=== PATIENT | male | born 1990 | race Caucasian/White ===

== ENCOUNTER 2019-10-20 14:50 | Emergency (ER) | payer OTHER ==
[2019-10-20] MEDS ORDERED: Ketorolac 60 MG/2 ML SDV IM ONE (16:07)
[2019-10-20] MEDS ORDERED: Oseltamivir 75 MG Cap PO ONE (16:08)
[2019-10-20] MEDS ORDERED: Dexamethasone 10 MG/ML SDV IM ONE (16:09)
--- NOTE | 2019-10-20 16:23 | EDM.PDOC ---
ED HPI GENERAL MEDICAL PROBLEM - General Chief Complaint: Respiratory Problem Stated Complaint: FLU SX Time Seen by Provider: 10/20/19 15:12 Source of Information: Reports: Patient, RN Notes Reviewed History Limitations: Reports: No Limitations - History of Present Illness INITIAL COMMENTS - FREE TEXT/NARRATIVE: Patient is a 29-year-old male who presents to the ED for the evaluation of a fever and flulike symptoms. Patient notes that these developed yesterday, and he states that they worsened this morning. He tried to go to work, but had to leave work due to his symptoms. He states he feels as if he has been hit by a ton of bricks. He is complaining of headache, fevers/chills, all over body aches, but does not have any nausea vomiting or diarrhea. He did take some DayQuil at around noon today for further management of his symptoms. He states that he was able to get some sleep last night and this made him feel a little bit better. He states that he is not been able to eat or drink much due to the pain in his throat, he states he has been trying to drink water however. - Related Data Allergies Allergy/AdvReac Type Severity Reaction Status Date / Time No Known Allergies Allergy Verified 10/20/19 15:24 Home Meds: Home Meds Omeprazole 20 mg PO BEDTIME 10/20/19 [History] Oseltamivir [Tamiflu] 75 mg PO BID #9 cap 10/20/19 [Rx] Past Medical History - Past Health History Medical/Surgical History: Denies Medical/Surgical History - Past Surgical History HEENT Surgical History: Reports: Oral Surgery Social & Family History - Tobacco Use Smoking Status *Q: Current Every Day Smoker Years of Tobacco use: 13 Packs/Tins Daily: 1 - Caffeine Use Caffeine Use: Reports: Energy Drinks - Recreational Drug Use Recreational Drug Use: No ED ROS GENERAL - Review of Systems Review Of Systems: Comprehensive ROS is negative, except as noted in HPI. Constitutional: Reports: Fever, Chills, Malaise, Decreased Appetite HEENT: Reports: Throat Pain Respiratory: Reports: Cough. Denies: Shortness of Breath Cardiovascular: Denies: Chest Pain GI/Abdominal: Denies: Abdominal Pain, Nausea, Vomiting ED EXAM, GENERAL - Physical Exam Exam: See Below Exam Limited By: No Limitations General Appearance: Alert, WD/WN, No Apparent Distress Eye Exam: Bilateral Eye: EOMI, Normal Inspection, PERRL Ears: Normal External Exam, Normal Canal, Hearing Grossly Normal, Normal TMs Nose: Normal Inspection Throat/Mouth: Normal Inspection, Normal Lips, Normal Teeth, Normal Gums, Normal Oropharynx, Normal Voice, No Airway Compromise Head: Atraumatic, Normocephalic Neck: Normal Inspection Respiratory/Chest: No Respiratory Distress, Lungs Clear, Normal Breath Sounds, No Accessory Muscle Use, Chest Non-Tender Cardiovascular: Normal Peripheral Pulses, Regular Rate, Rhythm, No Murmur Extremities: Normal Inspection, Normal Capillary Refill Neurological: Alert, Oriented, Normal Cognition, No Motor/Sensory Deficits Psychiatric: Normal Affect, Normal Mood Skin Exam: Warm, Dry, Intact, Normal Color, No Rash Course - Vital Signs Last Recorded V/S: Last Vital Signs Temp 103.0 F H 10/20/19 15:28 Pulse 117 H 10/20/19 15:28 Resp 36 H 10/20/19 15:28 BP 157/85 H 10/20/19 15:28 Pulse Ox 99 10/20/19 15:28 - Orders/Labs/Meds Meds: Medications Discontinued Medications Generic Name Dose Route Start Last Admin Trade Name Freq PRN Reason Stop Dose Admin Dexamethasone 10 mg 10/20/19 16:09 10/20/19 16:27 Dexamethasone IM 10/20/19 16:10 10 mg ONETIME ONE Administration Ketorolac Tromethamine 60 mg 10/20/19 16:07 10/20/19 16:28 Toradol IM 10/20/19 16:08 Not Given ONETIME ONE Oseltamivir Phosphate 75 mg 10/20/19 16:08 10/20/19 16:27 Tamiflu PO 10/20/19 16:09 75 mg ONETIME ONE Administration - Re-Assessments/Exams Free Text/Narrative Re-Assessment/Exam: 10/20/19 16:20 Patient presents to the ED for flulike symptoms. He was swabbed for influenza at the time of triage, and he is influenza A positive at today's visit. I have ordered 60 mg IM Toradol, 10 mg IM dexamethasone for his throat pain and inflammation, and oral Tamiflu as his symptoms started yesterday. Patient will be discharged home with general recommendations. Departure - Departure Time of Disposition: 16:21 Disposition: Home, Self-Care 01 Condition: Fair Clinical Impression: Influenza A - Discharge Information *PRESCRIPTION DRUG MONITORING PROGRAM REVIEWED*: No *COPY OF PRESCRIPTION DRUG MONITORING REPORT IN PATIENT LU: No Prescriptions: Oseltamivir [Tamiflu] 75 mg PO BID #9 cap Instructions: Influenza, Adult, [id number] Referrals: Yuniel Marvin MD [Primary Care Provider] - Forms: ED Department Discharge Additional Instructions: You have been evaluated in the ED for cold like symptoms and fever. You did test positive for influenza A. Please try to limit your exposure to others you are 24 hours fever free. You may use 500 mg Tylenol or 600 mg ibuprofen every 6 hours as needed for general aches/fever. Do not exceed 4000 mg Tylenol or 3200 mg ibuprofen in a 24 -hour time span. Please encourage fluid intake as well as a bland diet until you can tolerate normal foods. Please return to the ED if your symptoms should change or worsen. Sepsis Event Note - Evaluation Sepsis Screening Result: No Definite Risk - Focused Exam Vital Signs: Vital Signs Temp Pulse Resp BP Pulse Ox 10/20/19 15:28 103.0 F H 117 H 36 H 157/85 H 99 Date Exam was Performed: 10/20/19 Time Exam was Performed: 23:15
== END 2019-10-20 16:50 | disposition home or self-care (01) ==
LOC: JD.ED 14:50
DX: J10.1 Influenza due to other identified influenza virus with other respiratory manifestations (principal); F17.210 Nicotine dependence, cigarettes, uncomplicated
CPT/HCPCS: 87804; 96372; 99284; A9270; J1100; 99283

== ENCOUNTER 2020-10-10 18:13 | Emergency (ER) | payer OTHER ==
--- NOTE | 2020-10-10 19:15 | EDM.PDOC ---
ED HPI GENERAL MEDICAL PROBLEM - General Chief Complaint: Upper Extremity Injury/Pain Stated Complaint: PAIN IN BOTH WRISTS Time Seen by Provider: 10/10/20 18:57 Source of Information: Reports: Patient, RN Notes Reviewed History Limitations: Reports: No Limitations - History of Present Illness INITIAL COMMENTS - FREE TEXT/NARRATIVE: Patient is a 30-year-old male who presents to the ED for evaluation of his bilateral wrist pain. Patient notes that this has been present for the last 6 or 8 months. However over the last 1 to 2 weeks, it seems to have worsened. He is complaining of some numbness and tingling into his fingers, with throbbing type pain in his wrists. He states that he has issues gripping things due to the pain, and notes that this seems to be worse in the right wrist. Patient is right-handed. 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 He has been using 600 mg ibuprofen about 2 times a day once in the morning, then once about custodial through the day. Patient states that his primary care provider is Dr. Marvin. The patient has no fevers or chills, cough/shortness of breath, nausea/vomiting/diarrhea. Bilateral Wrist Pain Score (Numeric/FACES): 5 - Related Data Allergies Allergy/AdvReac Type Severity Reaction Status Date / Time No Known Allergies Allergy Verified 10/10/20 18:20 Home Meds: Home Meds Omeprazole 20 mg PO BEDTIME 10/20/19 [History] Acetaminophen/HYDROcodone [[place] 325-5 MG] 1 tab PO Q6H PRN #15 tablet 10/10/20 [Rx] predniSONE 20 mg PO ASDIRECTED #15 tab 10/10/20 [Rx] Past Medical History - Past Health History Medical/Surgical History: Denies Medical/Surgical History Gastrointestinal History: Reports: GERD, Irritable Bowel Syndrome Psychiatric History: Reports: Depression - Infectious Disease History Infectious Disease History: Reports: Chicken Pox - Past Surgical History HEENT Surgical History: Reports: Oral Surgery Other HEENT Surgeries/Procedures: all teeth extracted. Social & Family History - Tobacco Use Tobacco Use Status *Q: Current Every Day Tobacco User Years of Tobacco use: 14 Packs/Tins Daily: 0.5 - Caffeine Use Caffeine Use: Reports: Coffee, Energy Drinks, Soda - Recreational Drug Use Recreational Drug Use: No Review of Systems - Review of Systems Review Of Systems: Comprehensive ROS is negative, except as noted in HPI. ED EXAM, GENERAL - Physical Exam Exam: See Below Exam Limited By: No Limitations General Appearance: Alert, WD/WN, No Apparent Distress Respiratory/Chest: No Respiratory Distress, Lungs Clear, Normal Breath Sounds, No Accessory Muscle Use, Chest Non-Tender Cardiovascular: Normal Peripheral Pulses, Regular Rate, Rhythm, No Edema Peripheral Pulses: 2+: Radial (L), Radial (R) Extremities: Normal Inspection, Normal Capillary Refill, Other (Tinel's sign is positive bilaterally) Neurological: Alert, Oriented, Normal Cognition, No Motor/Sensory Deficits Psychiatric: Normal Affect, Normal Mood Skin Exam: Warm, Dry, Intact, Normal Color, No Rash Course - Vital Signs Last Recorded V/S: Last Vital Signs Temp 100.1 F 10/10/20 18:15 Pulse 106 H 10/10/20 18:15 Resp 18 10/10/20 18:15 BP 201/103 H 10/10/20 18:15 Pulse Ox 99 10/10/20 18:15 - Orders/Labs/Meds Orders: Active Orders 24 hr Category Date Time Status DME for Discharge [COMM] Routine Oth 10/10/20 19:08 Ordered - Re-Assessments/Exams Free Text/Narrative Re-Assessment/Exam: 10/10/20 19:11 Patient presents to the ED for the evaluation of his bilateral wrist pain. Clinical course is highly suspicious for carpal tunnel versus arthritis in nature. Due to the suspicion of carpal tunnel, patient will be given to wrist splints 1 for his right and one for his left wrist, so he can wear at night to hopefully provide him pain relief. This will be prefab wrist splints pulled fr om the DME closet. We will get him home with a course of steroids, and some pain medication to take at nighttime. Patient is amenable to this plan he notes that he will talk with Dr. Marvin sometime next week for further management. Departure - Departure Time of Disposition: 19:12 Disposition: Home, Self-Care 01 Condition: Good Clinical Impression: Carpal tunnel syndrome on both sides - Discharge Information *PRESCRIPTION DRUG MONITORING PROGRAM REVIEWED*: Yes *COPY OF PRESCRIPTION DRUG MONITORING REPORT IN PATIENT LU: No Prescriptions: Acetaminophen/HYDROcodone [[place] 325-5 MG] 1 tab PO Q6H PRN #15 tablet PRN Reason: Pain predniSONE 20 mg PO ASDIRECTED #15 tab Instructions: Carpal Tunnel Syndrome, [id number] Referrals: Yuniel Marvin MD [Primary Care Provider] - Additional Instructions: You were evaluated in the ER today for your bilateral wrist pain. This is thought likely due to carpal tunnel syndrome. Management for this is wrist splints at night on both wrists, a course of anti-inflammatories, and some pain medication. All of which have been provided to at this ER visit. You will need to follow-up with your regular care provider, sometime this week for ongoing management and to make sure your symptoms are getting better. They would be able to provide you with more thorough testing if it is deemed warranted. Please return to the ER at any time if symptoms change or worsen. Sepsis Event Note (ED) - Evaluation Sepsis Screening Result: No Definite Risk - Focused Exam Vital Signs: Vital Signs Temp Pulse Resp BP Pulse Ox 10/10/20 18:15 100.1 F 106 H 18 201/103 H 99 - My Orders Last 24 Hours: My Active Orders 10/10/20 19:08 DME for Discharge [COMM] Routine - Assessment/Plan Last 24 Hours: My Active Orders 10/10/20 19:08 DME for Discharge [COMM] Routine
== END 2020-10-10 19:30 | disposition home or self-care (01) ==
LOC: JD.ED 18:13
DX: G56.02 Carpal tunnel syndrome, left upper limb (principal); K21.9 Gastro-esophageal reflux disease without esophagitis; Z72.0 Tobacco use; Z79.899 Other long term (current) drug therapy
CPT/HCPCS: 99283

== ENCOUNTER 2020-12-25 18:06 | Emergency (ER) | payer OTHER ==
[2020-12-25] MEDS ORDERED: HYDROmorphone 1 MG/ML Syringe IM ONE (18:28)
--- NOTE | 2020-12-25 18:44 | EDM.PDOC ---
ED HPI GENERAL MEDICAL PROBLEM - General Chief Complaint: Upper Extremity Injury/Pain Stated Complaint: pain post op on hand Time Seen by Provider: 12/25/20 18:09 Source of Information: Reports: Patient, RN Notes Reviewed History Limitations: Reports: No Limitations - History of Present Illness INITIAL COMMENTS - FREE TEXT/NARRATIVE: Patient is a 30-year-old male presenting to the emergency department with complaints of postop pain to his right hand. He had carpal tunnel release surgery with Dr. Bonds early this morning in [place]. He states that ever since his nerve block wore off, he has been having intense pain. He was discharged home with 5 [place] 5/325. He states he took 3 of them when the block wore off and then another 2 of them at noon today, therefore he is out. He verbalized that he has a high tolerance to pain medications. Prior to his surgery, Dr. Harry was prescribing him Percocet 10/325 for the pain he was having in his hand which led up to the carpal tunnel release surgery. He states the pain is so severe that it is making him nauseous and anxious which is causing him to be lightheaded as well. right hand Pain Score (Numeric/FACES): 9 - Related Data Allergies Allergy/AdvReac Type Severity Reaction Status Date / Time No Known Allergies Allergy Verified 12/25/20 18:17 Home Meds: Home Meds Omeprazole 20 mg PO BEDTIME 10/20/19 [History] Acetaminophen/HYDROcodone [[place] 325-5 MG] 1 tab PO Q6H PRN #15 tablet 10/10/20 [Rx] Acetaminophen/oxyCODONE [Percocet 325-5 MG] 1 each PO Q4H PRN #10 tab 12/25/20 [Rx] Past Medical History - Past Health History Medical/Surgical History: Denies Medical/Surgical History Gastrointestinal History: Reports: GERD, Irritable Bowel Syndrome Psychiatric History: Reports: Depression - Infectious Disease History Infectious Disease History: Reports: Chicken Pox - Past Surgical History HEENT Surgical History: Reports: Oral Surgery Other HEENT Surgeries/Procedures: all teeth extracted. Social & Family History - Tobacco Use Tobacco Use Status *Q: Current Every Day Tobacco User Years of Tobacco use: 15 Packs/Tins Daily: 1 - Caffeine Use Caffeine Use: Reports: Coffee, Energy Drinks, Soda - Recreational Drug Use Recreational Drug Use: No Review of Systems - Review of Systems Review Of Systems: Comprehensive ROS is negative, except as noted in HPI. ED EXAM, GENERAL - Physical Exam Exam: See Below Exam Limited By: No Limitations General Appearance: Alert, WD/WN, No Apparent Distress Respiratory/Chest: No Respiratory Distress, Lungs Clear, Normal Breath Sounds, No Accessory Muscle Use, Chest Non-Tender Cardiovascular: Normal Peripheral Pulses, Regular Rate, Rhythm, No Edema, No Gallop, No JVD, No Murmur, No Rub Extremities: Other (surgical dressing intact to right hand. No redness, swelling, or edema extending beyong the dressing. CMS is intact distal to the surgical sight.) Neurological: Alert, Oriented, CN II-XII Intact, Normal Cognition, Normal Gait, Normal Reflexes, No Motor/Sensory Deficits Psychiatric: Normal Affect, Normal Mood Skin Exam: Warm, Dry, Intact, Normal Color, No Rash Course - Vital Signs Last Recorded V/S: Last Vital Signs Temp 98.2 F 12/25/20 18:13 Pulse 105 H 12/25/20 18:13 Resp 18 12/25/20 18:13 BP 169/94 H 12/25/20 18:13 Pulse Ox 99 12/25/20 18:13 - Orders/Labs/Meds Orders: Active Orders 24 hr Category Date Time Status COVID-19/FLU A+B [[facility]] Stat Lab 12/25/20 19:15 Stop Req Meds: Medications Discontinued Medications Generic Name Dose Route Start Last Admin Trade Name Taylor PRN Reason Stop Dose Admin Hydromorphone HCl 1 mg 12/25/20 18:28 12/25/20 18:33 Hydromorphone 1 Mg/Ml Syringe IM 12/25/20 18:29 1 mg ONETIME ONE Administration Ketorolac Tromethamine 60 mg 12/25/20 19:01 12/25/20 19:07 Ketorolac 60 Mg/2 Ml Sdv IM 12/25/20 19:02 60 mg ONETIME ONE Administration - Re-Assessments/Exams Free Text/Narrative Re-Assessment/Exam: Patient is a 30-year-old male presenting to the emergency department with complaints of postop pain to his right hand after having carpal tunnel release surgery this morning. He was discharged home with 5 [place]. He states he took 3 of them as soon as the block wore off and then took another 2 around noon. He has had nothing but ibuprofen for pain since noon. He is quite anxious and appears to be in significant discomfort. CMS is intact distal to the surgical site. There is no redness or swelling noted, however given that it has only been about 12 hours since surgery I would not expect to see this anyway. I have ordered Dilaudid 1 mg IM. 12/25/20 19:14 Patient had some relief with the Dilaudid 1 mg IM. Also given Toradol 60 mg IM. I will give him a short course of Percocet. I will give him 10 tabs. Discussed that if he is still having significant pain after 24 to 40 hours, he should be reevaluated. Recommend ice and elevation. Discharge instructions as documented. Departure - Departure Time of Disposition: 19:15 Disposition: Home, Self-Care 01 Condition: Good Clinical Impression: Postoperative pain - Discharge Information *PRESCRIPTION DRUG MONITORING PROGRAM REVIEWED*: Yes *COPY OF PRESCRIPTION DRUG MONITORING REPORT IN PATIENT LU: No Prescriptions: Acetaminophen/oxyCODONE [Percocet 325-5 MG] 1 each PO Q4H PRN #10 tab PRN Reason: Pain Instructions: Acute Pain, Adult Referrals: Conrad Harry MD [Primary Care Provider] - Forms: ED Department Discharge Additional Instructions: You were seen in the emergency department today for evaluation with regards to severe postop pain after your carpal tunnel surgery this morning. While in the ER, you received an injection of Dilaudid as well as Toradol. You have been provided a prescription of Percocet for pain. Recommend routine Tylenol and ibuprofen administration. For pain not relieved by this, you may take 1 Percocet every 4 hours as needed. Do not take your next dose of ibuprofen until about 1:00 this morning as the Toradol you received is also an NSAID. Ice and elevate the extremity at all times for the next 24 to 48 hours. If you are still experiencing significant discomfort after 24 to 48 hours, you should be reevaluated. Sepsis Event Note (ED) - Evaluation Sepsis Screening Result: No Definite Risk - Focused Exam Vital Signs: Vital Signs Temp Pulse Resp BP Pulse Ox 12/25/20 18:13 98.2 F 105 H 18 169/94 H 99
[2020-12-25] MEDS ORDERED: Ketorolac 60 MG/2 ML SDV IM ONE (19:01)
== END 2020-12-25 19:27 | disposition home or self-care (01) ==
LOC: JD.ED 18:06
DX: G89.18 Other acute postprocedural pain (principal); K21.9 Gastro-esophageal reflux disease without esophagitis; Z79.899 Other long term (current) drug therapy; Z72.0 Tobacco use
CPT/HCPCS: 96372; 99283; J1170; J1885

== ENCOUNTER 2022-01-03 07:56 | Emergency (ER) | payer SELFPAY ==
[2022-01-03] MEDS ORDERED: Albuterol 0.083% 2.5 MG/3 ML Neb Soln NEB ONE (08:53)
[2022-01-03 09:46] LABS: CORONAVIRUS COVID-19 NAA NEGATIVE (NEGATIVE)
== END 2022-01-03 11:05 | disposition home or self-care (01) ==
LOC: JD.ED 07:56
DX: J40 Bronchitis, not specified as acute or chronic (principal); K21.9 Gastro-esophageal reflux disease without esophagitis; Z79.899 Other long term (current) drug therapy; Z72.0 Tobacco use; Z20.822 Contact with and (suspected) exposure to COVID-19
CPT/HCPCS: 0241U; 36415; 71045; 80053; 85025; 85379; 86140; 87651; 94640; 99284

== ENCOUNTER 2022-01-04 13:48 | Emergency (ER) | payer SELFPAY ==
[2022-01-04] MEDS ORDERED: methylPREDNISolone Sodium Succinate 125 MG/2 ML SDV IM ONE (15:49)
[2022-01-04] MEDS ORDERED: HYDROmorphone 1 MG/ML Syringe IM ONE (15:49)
[2022-01-04] MEDS ORDERED: Ketorolac 60 MG/2 ML SDV IM ONE (15:50)
[2022-01-04] MEDS ORDERED: cefTRIAXone 1 GM, Lidocaine 1% 2.1 ML IM ONE ×2 (15:51)
== END 2022-01-04 17:51 | disposition home or self-care (01) ==
LOC: JD.ED 13:48 → SUPCPDRO 13:48 → JD.ED 17:51
DX: H60.501 Unspecified acute noninfective otitis externa, right ear (principal); H66.001 Acute suppurative otitis media without spontaneous rupture of ear drum, right ear; K21.9 Gastro-esophageal reflux disease without esophagitis; Z79.899 Other long term (current) drug therapy
CPT/HCPCS: 96372; 99282; J0696; J1170; J1885; J2930

== ENCOUNTER 2022-04-02 00:55 | Emergency (ER) | payer BC ==
[2022-04-02] MEDS ORDERED: Ibuprofen 800 MG Tab PO ONE (01:33)
[2022-04-02 02:40] LABS: CORONAVIRUS COVID-19 NAA POSITIVE (NEGATIVE)
== END 2022-04-02 02:56 | disposition home or self-care (01) ==
LOC: JD.ED 00:55
DX: U07.1 COVID-19 (principal); K21.9 Gastro-esophageal reflux disease without esophagitis; Z79.899 Other long term (current) drug therapy; Z86.16 Personal history of COVID-19
CPT/HCPCS: 0241U; 99283; A9270; 99282

== ENCOUNTER 2022-05-01 12:53 | Emergency (ER) | payer BC | END 2022-05-01 15:00 | disposition home or self-care (01) | LOC: JD.ED 12:53 | DX: J02.9 Acute pharyngitis, unspecified (principal); K21.9 Gastro-esophageal reflux disease without esophagitis; F17.210 Nicotine dependence, cigarettes, uncomplicated; Z79.899 Other long term (current) drug therapy; Z86.16 Personal history of COVID-19 | CPT/HCPCS: 99282; 99283 ==

== ENCOUNTER 2022-08-10 21:08 | Emergency (ER) | payer BC ==
[2022-08-10 22:37] LABS: ESTIMATED GFR 92 mL/min (>60)
== END 2022-08-10 23:50 | disposition home or self-care (01) ==
LOC: JD.ED 21:08
DX: R00.2 Palpitations (principal); K21.9 Gastro-esophageal reflux disease without esophagitis; F17.210 Nicotine dependence, cigarettes, uncomplicated; Z79.899 Other long term (current) drug therapy; Z86.16 Personal history of COVID-19
CPT/HCPCS: 36415; 71046; 71046-26; 80053; 83735; 84443; 85025; 85379; 93005; 99285

== ENCOUNTER 2023-04-03 23:11 | Emergency (ER) | payer BC ==
[2023-04-03] MEDS ORDERED: LORazepam 2 MG/ML SDV IVPUSH ONE (23:23)
[2023-04-03 23:51] LABS: BASOPHILS ABSOLUTE AUTO 0.02 K/mm3 (0.01-0.08); BASOPHILS PERCENT AUTO 0.2 % (0.1-1.2); EOSINOPHILS ABSOLUTE AUTO 0.16 K/mm3 (0.04-0.54); EOSINOPHILS PERCENT AUTO 1.5 (0.8-7.0); HEMATOCRIT 41.2 % (40.1-51.0); HEMOGLOBIN 14.4 gm/dl (13.7-17.5); IMMATURE GRAN ABSOLUTE AUTO 0.02 K/mm3 (0.00-0.10); IMMATURE GRAN PERCENT AUTO 0.2 % (<=1.0); LYMPHOCYTES ABSOLUTE AUTO 2.66 K/mm3 (1.32-3.57); LYMPHOCYTES PERCENT AUTO 24.8 % (21.8-53.1); MEAN CORPUSCULAR HEMOGLOBIN 29.9 pg (25.7-32.2); MEAN CORPUSCULAR VOLUME 85.7 fl (79.0-92.2); MEAN PLATELET VOLUME 9.5 fl (9.4-12.3); MONOCYTES ABSOLUTE AUTO 0.81 K/mm3 (0.30-0.82); MONOCYTES PERCENT AUTO 7.6 % (5.3-12.2); NEUTROPHILS ABSOLUTE AUTO 7.04 K/mm3 (1.78-5.38); NEUTROPHILS PERCENT AUTO 65.7 % (34.0-67.9); PLATELET COUNT,PLT 291 K/mm3 (163-337); RED BLOOD CELL COUNT 4.81 M/mm3 (4.63-6.08); WHITE BLOOD CELL COUNT,WBC 10.71 K/mm3 (4.23-9.07)
[2023-04-04 00:09] LABS: PROTHROMBIN TIME 9.9 SECONDS (9.7-12.0)
[2023-04-04 00:13] LABS: INR < 0.93
[2023-04-04 00:16] LABS: A/G RATIO 1.1 (1-2); ALANINE AMINOTRANSFERASE,ALT 49 U/L (16-63); ALKALINE PHOSPHATASE 119 U/L (46-116); ANION GAP 12.9 (5-15); ASPARTATE AMNIOTRANSFERASE,AST 19 U/L (15-37); BILIRUBIN TOTAL 1.2 mg/dL (0.2-1.0); BLOOD UREA NITROGEN,BUN 7 mg/dL (7-18); BUN/CREATININE RATIO 6.4 (14-18); CALCIUM 9.4 mg/dL (8.5-10.1); CARBON DIOXIDE,CO2 27 mEq/L (21-32); CHLORIDE,CL 101 mEq/L (98-107); CREATININE 1.1 mg/dL (0.7-1.3); ESTIMATED GFR 92 mL/min (>60); GLUCOSE RANDOM 125 mg/dL (70-99); POTASSIUM,K 2.9 mEq/L (3.5-5.1); PROTEIN TOTAL,TP 7.6 g/dl (6.4-8.2); SODIUM,NA 138 mEq/L (136-145); TROPONIN I HIGH SENSITIVITY 4 pg/mL (<=76)
== END 2023-04-04 01:09 | disposition home or self-care (01) ==
LOC: JD.ED 23:11
DX: F41.0 Panic disorder [episodic paroxysmal anxiety] (principal); F19.10 Other psychoactive substance abuse, uncomplicated; K21.9 Gastro-esophageal reflux disease without esophagitis; Z79.899 Other long term (current) drug therapy; Z86.16 Personal history of COVID-19
CPT/HCPCS: 36415; 80053; 84484; 85025; 85610; 93005; 96374; 99285; J2060; 93010; 99284

== ENCOUNTER 2023-12-23 19:10 | Emergency (ER) | payer BC | END 2023-12-23 20:54 | disposition home or self-care (01) | LOC: JD.ED 19:10 | DX: F41.0 Panic disorder [episodic paroxysmal anxiety] (principal); K21.9 Gastro-esophageal reflux disease without esophagitis; Z79.899 Other long term (current) drug therapy; Z86.16 Personal history of COVID-19 | CPT/HCPCS: 99284 ==

== ENCOUNTER 2024-01-26 21:41 | Emergency (ER) | payer BC ==
[2024-01-26] MEDS ORDERED: Acetaminophen 325 MG Tab PO SCH (22:00)
[2024-01-26] MEDS: Acetaminophen 325 MG Tab PO ONE (22:11)
== END 2024-01-26 22:52 | disposition home or self-care (01) ==
LOC: JD.ED 21:41
DX: G89.18 Other acute postprocedural pain (principal); M79.641 Pain in right hand; K21.9 Gastro-esophageal reflux disease without esophagitis; Z86.16 Personal history of COVID-19; Z79.82 Long term (current) use of aspirin; Z79.899 Other long term (current) drug therapy
CPT/HCPCS: 99283

== ENCOUNTER 2024-01-27 21:16 | Inpatient (IN) | payer BC ==
[2024-01-28 00:54] LABS: BASOPHILS ABSOLUTE AUTO 0.1 K/mm3 (0.0-0.2); BASOPHILS PERCENT AUTO 0.5 % (0.0-1.0); EOSINOPHILS ABSOLUTE AUTO 0.2 K/mm3 (0.0-0.4); EOSINOPHILS PERCENT AUTO 1.5 % (0.0-6.0); HEMATOCRIT 41.3 % (42.0-52.0); HEMOGLOBIN 14.5 gm/dl (14.0-18.0); IMMATURE GRAN ABSOLUTE AUTO 0.03 K/mm3 (0.00-0.05); IMMATURE GRAN PERCENT AUTO 0.3 % (0.0-0.4); LYMPHOCYTES ABSOLUTE AUTO 2.9 K/mm3 (1.0-4.8); LYMPHOCYTES PERCENT AUTO 30.1 % (24.0-44.0); MEAN CORPUSCULAR HEMOGLOBIN 29.2 pg (28.0-32.0); MEAN CORPUSCULAR HGB CONC 35.1 g/dl (32.0-36.0); MEAN CORPUSCULAR VOLUME 83.1 fl (83.0-99.0); MEAN PLATELET VOLUME 9.3 fl (9.4-12.4); MONOCYTES ABSOLUTE AUTO 0.8 K/mm3 (0.0-0.8); MONOCYTES PERCENT AUTO 8.2 % (0.0-8.0); NEUTROPHILS ABSOLUTE AUTO 5.8 K/mm3 (1.8-7.7); NEUTROPHILS PERCENT AUTO 59.4 % (41.0-71.0); PLATELET COUNT,PLT 283 K/mm3 (150-400); RED BLOOD CELL COUNT 4.97 M/mm3 (4.52-5.90)
[2024-01-28] MEDS: Ketorolac 15 MG/ML SDV IVPUSH ONE (00:56)
[2024-01-28] MEDS: Sodium Chloride 0.9% 1,000 ML IV ONE (00:56)
[2024-01-28] MEDS: Morphine 4 MG/ML Syringe IVPUSH ONE (00:57)
[2024-01-28 01:16] LABS: A/G RATIO 1.2 (1-2); ALBUMIN 4.1 g/dl (3.4-5.0); ANION GAP 16.7 (5-15); BILIRUBIN TOTAL 1.5 mg/dL (0.2-1.0); BUN/CREATININE RATIO 7.3 (14-18); C-REACTIVE PROTEIN 0.47 mg/dL (<0.30); CALCIUM 9.3 mg/dL (8.5-10.1); CREATININE 1.1 mg/dL (0.7-1.3); EST CRCL DRUG DOSING (CG) 102.68 mL/min; POTASSIUM,K 3.7 mEq/L (3.5-5.1); PROTEIN TOTAL,TP 7.6 g/dl (6.4-8.2)
[2024-01-28 01:36] LABS: INR 0.95; PROTHROMBIN TIME 10.2 SECONDS (9.7-12.0)
[2024-01-28 01:38] LABS: PTT,PARTIAL THROMBOPLSTIN TIME 28.8 SECONDS (21.7-31.4)
[2024-01-28] MEDS: Aspirin 81 MG Tab.Chew PO ONE (01:42)
[2024-01-28] MEDS: Heparin Sodium 5,000 Units/ML Vial IVPUSH ONE (01:42)
[2024-01-28] MEDS: Heparin Sodium/D5W 25,000 UNITS/500 ML BAG IV SCH (01:43)
[2024-01-28] MEDS: Ondansetron 4 MG/2 ML SDV IVPUSH ONE (01:48)
[2024-01-28] MEDS: HYDROmorphone 1 MG/ML Syringe IVPUSH ONE ×2 (02:59→05:26)
[2024-01-28] MEDS: HYDROmorphone 0.5 MG/0.5 ML Syringe IVPUSH ONE (07:49)
[2024-01-28] MEDS: Morphine 2 MG/ML SYRINGE IVPUSH ONE ×2 (09:27→13:00)
[2024-01-28] MEDS: LORazepam 1 MG Tab PO PRN (12:28)
[2024-01-28] MEDS: HYDROmorphone 0.5 MG/0.5 ML Syringe IVPUSH PRN (12:30)
[2024-01-28] MEDS: LORazepam 1 MG Tab PO ONE (15:30)
[2024-01-28] MEDS: oxyCODONE 5 MG Tab PO PRN (15:52)
[2024-01-28] MEDS: hydrALAZINE 20 MG/ML SDV IVPUSH ONE (15:52)
[2024-01-28] MEDS: LORazepam 1 MG Tab PO SCH (16:00)
[2024-01-28] MEDS: Pantoprazole 40 MG Tab.CR PO SCH (20:41)
[2024-01-28] MEDS ORDERED: LORazepam 1 MG Tab PO SCH (21:00)
[2024-01-28] MEDS: Acetaminophen 325 MG Tab PO PRN (21:06)
[2024-01-28] MEDS: cloNIDine 0.1 MG Tab PO PRN (23:05)
[2024-01-29 06:02] LABS: BASOPHILS PERCENT AUTO 0.5 % (0.0-1.0); EOSINOPHILS ABSOLUTE AUTO 0.2 K/mm3 (0.0-0.4); EOSINOPHILS PERCENT AUTO 2.2 % (0.0-6.0); HEMATOCRIT 37.1 % (42.0-52.0); IMMATURE GRAN ABSOLUTE AUTO 0.03 K/mm3 (0.00-0.05); IMMATURE GRAN PERCENT AUTO 0.4 % (0.0-0.4); LYMPHOCYTES ABSOLUTE AUTO 3.1 K/mm3 (1.0-4.8); LYMPHOCYTES PERCENT AUTO 36.4 % (24.0-44.0); MEAN CORPUSCULAR HEMOGLOBIN 29.1 pg (28.0-32.0); MEAN CORPUSCULAR HGB CONC 34.5 g/dl (32.0-36.0); MEAN CORPUSCULAR VOLUME 84.3 fl (83.0-99.0); MEAN PLATELET VOLUME 9.1 fl (9.4-12.4); MONOCYTES ABSOLUTE AUTO 0.7 K/mm3 (0.0-0.8); MONOCYTES PERCENT AUTO 7.9 % (0.0-8.0); NEUTROPHILS ABSOLUTE AUTO 4.5 K/mm3 (1.8-7.7); NEUTROPHILS PERCENT AUTO 52.6 % (41.0-71.0); PLATELET COUNT,PLT 222 K/mm3 (150-400); WHITE BLOOD CELL COUNT,WBC 8.49 K/mm3 (3.9-11.3)
[2024-01-29 06:28] LABS: HEMOGLOBIN 12.8 gm/dl (14.0-18.0)
[2024-01-29 06:32] LABS: A/G RATIO 1.3 (1-2); ALBUMIN 3.7 g/dl (3.4-5.0); ANION GAP 10.8 (5-15); BILIRUBIN TOTAL 1.6 mg/dL (0.2-1.0); BUN/CREATININE RATIO 6.7 (14-18); CREATININE 1.2 mg/dL (0.7-1.3); EST CRCL DRUG DOSING (CG) 94.13 mL/min; POTASSIUM,K 3.8 mEq/L (3.5-5.1); PROTEIN TOTAL,TP 6.6 g/dl (6.4-8.2)
[2024-01-29] MEDS: Aspirin 81 MG Tab.EC PO SCH (08:06)
[2024-01-29] MEDS: amLODIPine 2.5 MG Tab PO SCH (08:06)
[2024-01-29] MEDS ORDERED: Losartan 50 MG Tab PO SCH (09:00)
[2024-01-29] MEDS: Polyethylene Glycol 3350 Powder 17 GM Packet PO SCH (10:32)
[2024-01-29] MEDS: amLODIPine 5 MG Tab PO ONE (12:38)
[2024-01-29] MEDS: Rosuvastatin 10 MG Tab PO SCH (14:53)
[2024-01-29] MEDS: Docusate Sodium 100 MG Cap PO SCH (20:40)
[2024-01-30 07:00] LABS: HEMOGLOBIN 12.2 gm/dl (14.0-18.0); MEAN CORPUSCULAR HEMOGLOBIN 28.7 pg (28.0-32.0); MEAN CORPUSCULAR HGB CONC 34.9 g/dl (32.0-36.0); MEAN CORPUSCULAR VOLUME 82.4 fl (83.0-99.0); MEAN PLATELET VOLUME 9.6 fl (9.4-12.4); PLATELET COUNT,PLT 223 K/mm3 (150-400); RED BLOOD CELL COUNT 4.25 M/mm3 (4.52-5.90); WHITE BLOOD CELL COUNT,WBC 7.85 K/mm3 (3.9-11.3)
[2024-01-30 07:23] LABS: A/G RATIO 1.2 (1-2); ALBUMIN 3.6 g/dl (3.4-5.0); BILIRUBIN TOTAL 1.8 mg/dL (0.2-1.0); BUN/CREATININE RATIO 7.3 (14-18); CALCIUM 8.9 mg/dL (8.5-10.1); CREATININE 1.1 mg/dL (0.7-1.3); EST CRCL DRUG DOSING (CG) 102.68 mL/min; PROTEIN TOTAL,TP 6.7 g/dl (6.4-8.2)
[2024-01-30] MEDS: Apixaban 5 MG Tab PO SCH (07:38)
[2024-01-30] MEDS: amLODIPine 5 MG Tab PO SCH (08:03)
[2024-01-30] MEDS: Acetaminophen/oxyCODONE 325-5 MG Tab PO PRN (10:15)
== END 2024-01-30 12:09 | disposition home or self-care (01) | DRG 207 ==
LOC: JD.ED 21:16 → JD.ICU 01-28 11:54
PROVIDERS: ADMIT Internal Medicine; ATTEND Internal Medicine
DX: I97.191 Other postprocedural cardiac functional disturbances following other surgery (principal); I74.2 Embolism and thrombosis of arteries of the upper extremities; F41.9 Anxiety disorder, unspecified; K21.9 Gastro-esophageal reflux disease without esophagitis; G89.18 Other acute postprocedural pain; I10 Essential (primary) hypertension; Z79.02 Long term (current) use of antithrombotics/antiplatelets; Z86.16 Personal history of COVID-19; Z79.01 Long term (current) use of anticoagulants; Z79.82 Long term (current) use of aspirin; Z87.891 Personal history of nicotine dependence; Z79.899 Other long term (current) drug therapy
CPT/HCPCS: 36415; 80053; 83605; 85025; 85027; 85610; 85652; 85730; 86140; 93931; 93931-26-RT; 96374; 96375; 96376; 99284-25; 99285; A9270-GY; J0360; J1170; J1644; J1885; J2270; J2405; J7030

== ENCOUNTER 2024-04-07 11:43 | Emergency (ER) | payer BC ==
[2024-04-07 12:23] LABS: BASOPHILS PERCENT AUTO 0.4 % (0.0-1.0); EOSINOPHILS PERCENT AUTO 0.4 % (0.0-6.0); HEMATOCRIT 43.3 % (42.0-52.0); HEMOGLOBIN 15.2 gm/dl (14.0-18.0); IMMATURE GRAN ABSOLUTE AUTO 0.05 K/mm3 (0.00-0.05); IMMATURE GRAN PERCENT AUTO 0.5 % (0.0-0.4); LYMPHOCYTES ABSOLUTE AUTO 1.7 K/mm3 (1.0-4.8); LYMPHOCYTES PERCENT AUTO 17.2 % (24.0-44.0); MEAN CORPUSCULAR HEMOGLOBIN 29.5 pg (28.0-32.0); MEAN CORPUSCULAR HGB CONC 35.1 g/dl (32.0-36.0); MEAN CORPUSCULAR VOLUME 83.9 fl (83.0-99.0); MEAN PLATELET VOLUME 9.5 fl (9.4-12.4); MONOCYTES ABSOLUTE AUTO 0.6 K/mm3 (0.0-0.8); MONOCYTES PERCENT AUTO 5.7 % (0.0-8.0); NEUTROPHILS ABSOLUTE AUTO 7.4 K/mm3 (1.8-7.7); NEUTROPHILS PERCENT AUTO 75.8 % (41.0-71.0); PLATELET COUNT,PLT 250 K/mm3 (150-400); RED BLOOD CELL COUNT 5.16 M/mm3 (4.52-5.90); WHITE BLOOD CELL COUNT,WBC 9.73 K/mm3 (3.9-11.3)
[2024-04-07] MEDS: Sodium Chloride 0.9% 1,000 ML IV ONE (12:23)
[2024-04-07] MEDS: Acetaminophen 325 MG Tab PO ONE (12:23)
[2024-04-07 13:07] LABS: A/G RATIO 1.3 (1-2); ALANINE AMINOTRANSFERASE,ALT 43 U/L (16-63); ALBUMIN 4.2 g/dl (3.4-5.0); ALKALINE PHOSPHATASE 97 U/L (46-116); ANION GAP 13.7 (5-15); ASPARTATE AMNIOTRANSFERASE,AST 18 U/L (15-37); BILIRUBIN TOTAL 2.7 mg/dL (0.2-1.0); BLOOD UREA NITROGEN,BUN 13 mg/dL (7-18); BUN/CREATININE RATIO 11.8 (14-18); CARBON DIOXIDE,CO2 26 mEq/L (21-32); CHLORIDE,CL 103 mEq/L (98-107); CREATININE 1.1 mg/dL (0.7-1.3); EST CRCL DRUG DOSING (CG) 102.68 mL/min; ESTIMATED GFR 91 mL/min (>60); GLUCOSE RANDOM 94 mg/dL (70-99); POTASSIUM,K 3.7 mEq/L (3.5-5.1); PROTEIN TOTAL,TP 7.4 g/dl (6.4-8.2); SODIUM,NA 139 mEq/L (136-145); TROPONIN I HIGH SENSITIVITY < 4 pg/mL (<=76)
[2024-04-07] MEDS: Ketorolac 30 MG/ML SDV IVPUSH ONE (13:35)
== END 2024-04-07 14:00 | disposition home or self-care (01) ==
LOC: JD.ED 11:43
DX: R51.9 Headache, unspecified (principal); E86.0 Dehydration; I10 Essential (primary) hypertension; K21.9 Gastro-esophageal reflux disease without esophagitis; Z86.16 Personal history of COVID-19; Z87.891 Personal history of nicotine dependence; Z79.899 Other long term (current) drug therapy; Z79.01 Long term (current) use of anticoagulants
CPT/HCPCS: 36415; 70450; 80053; 83735; 84484; 85025; 93005; 96361; 96374; 99284; J1885; J7030; 93010; 99283

== ENCOUNTER 2024-05-08 13:58 | Emergency (ER) | payer BC ==
[2024-05-08 15:06] LABS: BASOPHILS PERCENT AUTO 0.4 % (0.0-1.0); EOSINOPHILS ABSOLUTE AUTO 0.1 K/mm3 (0.0-0.4); EOSINOPHILS PERCENT AUTO 1.2 % (0.0-6.0); HEMATOCRIT 42.6 % (42.0-52.0); HEMOGLOBIN 15.2 gm/dl (14.0-18.0); IMMATURE GRAN ABSOLUTE AUTO 0.04 K/mm3 (0.00-0.05); IMMATURE GRAN PERCENT AUTO 0.5 % (0.0-0.4); LYMPHOCYTES ABSOLUTE AUTO 1.7 K/mm3 (1.0-4.8); LYMPHOCYTES PERCENT AUTO 21.2 % (24.0-44.0); MEAN CORPUSCULAR HEMOGLOBIN 29.1 pg (28.0-32.0); MEAN CORPUSCULAR HGB CONC 35.7 g/dl (32.0-36.0); MEAN CORPUSCULAR VOLUME 81.5 fl (83.0-99.0); MEAN PLATELET VOLUME 9.3 fl (9.4-12.4); MONOCYTES ABSOLUTE AUTO 0.6 K/mm3 (0.0-0.8); MONOCYTES PERCENT AUTO 6.8 % (0.0-8.0); NEUTROPHILS ABSOLUTE AUTO 5.7 K/mm3 (1.8-7.7); NEUTROPHILS PERCENT AUTO 69.9 % (41.0-71.0); PLATELET COUNT,PLT 302 K/mm3 (150-400); RED BLOOD CELL COUNT 5.23 M/mm3 (4.52-5.90); WHITE BLOOD CELL COUNT,WBC 8.19 K/mm3 (3.9-11.3)
[2024-05-08] MEDS: HYDROmorphone 0.5 MG/0.5 ML Syringe IVPUSH ONE ×2 (15:10→16:18)
[2024-05-08] MEDS: Sodium Chloride 0.9% 1,000 ML IV STA (15:10)
[2024-05-08] MEDS: Ondansetron 4 MG/2 ML SDV IVPUSH ONE (15:11)
[2024-05-08] MEDS: Sodium Chloride 0.9% 10 ML Syringe FLUSH PRN (15:12)
[2024-05-08] MEDS: Iopamidol 612 MG/ML 100 ML Bottle IVPUSH ONE (15:21)
[2024-05-08] MEDS: Sodium Chloride 0.9% 10 ML Syringe FLUSH ONE (15:21)
[2024-05-08 15:22] LABS: A/G RATIO 1.4 (1-2); ALBUMIN 4.3 g/dl (3.4-5.0); ANION GAP 13.5 (5-15); BILIRUBIN TOTAL 2.6 mg/dL (0.2-1.0); BUN/CREATININE RATIO 6.7 (14-18); CALCIUM 9.1 mg/dL (8.5-10.1); CREATININE 0.9 mg/dL (0.7-1.3); EST CRCL DRUG DOSING (CG) 124.34 mL/min; POTASSIUM,K 3.5 mEq/L (3.5-5.1); PROTEIN TOTAL,TP 7.3 g/dl (6.4-8.2)
[2024-05-08] MEDS: Metoclopramide 10 MG/2 ML SDV IVPUSH ONE (16:17)
[2024-05-08 16:18] LABS: APPEARANCE,URINE CLEAR (Clear); BILIRUBIN,URINE NEGATIVE (Negative); COLOR,URINE YELLOW (Yellow); GLUCOSE,URINE NEGATIVE (Negative); KETONES,URINE NEGATIVE (Negative); LEUKOCYTE ESTERASE,URINE NEGATIVE (Negative); NITRITE,URINE NEGATIVE (Negative); OCCULT BLOOD,URINE TRACE-INTACT (Negative); PROTEIN,URINE NEGATIVE (Negative); UROBILINOGEN,URINE 0.2 (0.2-1.0)
[2024-05-08 16:49] LABS: RBC,URINE 0-5 /hpf (0-5); WBC,URINE 0-5 /hpf (0-5)
[2024-05-08 16:52] LABS: BACTERIA,URINE FEW /hpf (FEW); MUCUS,URINE FEW /hpf (FEW); SQUAMOUS EPITHELIAL CELLS,UR 0-5 /hpf (0-5)
== END 2024-05-08 17:55 | disposition home or self-care (01) ==
LOC: JD.ED 13:58
DX: R10.32 Left lower quadrant pain (principal); E80.6 Other disorders of bilirubin metabolism; K21.9 Gastro-esophageal reflux disease without esophagitis; Z86.16 Personal history of COVID-19; Z87.891 Personal history of nicotine dependence; Z79.82 Long term (current) use of aspirin; Z79.899 Other long term (current) drug therapy; Z79.01 Long term (current) use of anticoagulants
CPT/HCPCS: 36415; 74177; 80053; 81001; 83690; 85025; 96361; 96374; 96375; 96376; 99284; J1170; J2405; J2765; J3490; J7030; Q9967

== ENCOUNTER 2024-06-15 20:09 | Emergency (ER) | payer BC ==
[2024-06-15] MEDS: Acetaminophen 325 MG Tab PO ONE (21:11)
[2024-06-15 21:14] LABS: BASOPHILS ABSOLUTE AUTO 0.1 K/mm3 (0.0-0.2); BASOPHILS PERCENT AUTO 0.5 % (0.0-1.0); EOSINOPHILS ABSOLUTE AUTO 0.1 K/mm3 (0.0-0.4); EOSINOPHILS PERCENT AUTO 1.1 % (0.0-6.0); HEMATOCRIT 41.3 % (42.0-52.0); HEMOGLOBIN 14.3 gm/dl (14.0-18.0); IMMATURE GRAN ABSOLUTE AUTO 0.03 K/mm3 (0.00-0.05); IMMATURE GRAN PERCENT AUTO 0.3 % (0.0-0.4); LYMPHOCYTES ABSOLUTE AUTO 2.8 K/mm3 (1.0-4.8); MEAN CORPUSCULAR HEMOGLOBIN 28.9 pg (28.0-32.0); MEAN CORPUSCULAR HGB CONC 34.6 g/dl (32.0-36.0); MEAN CORPUSCULAR VOLUME 83.4 fl (83.0-99.0); MEAN PLATELET VOLUME 9.3 fl (9.4-12.4); MONOCYTES ABSOLUTE AUTO 0.6 K/mm3 (0.0-0.8); MONOCYTES PERCENT AUTO 6.1 % (0.0-8.0); NEUTROPHILS ABSOLUTE AUTO 6.4 K/mm3 (1.8-7.7); PLATELET COUNT,PLT 264 K/mm3 (150-400); RED BLOOD CELL COUNT 4.95 M/mm3 (4.52-5.90); WHITE BLOOD CELL COUNT,WBC 9.95 K/mm3 (3.9-11.3)
[2024-06-15 21:44] LABS: A/G RATIO 1.4 (1-2); ALBUMIN 4.5 g/dl (3.4-5.0); ANION GAP 15.5 (5-15); BILIRUBIN TOTAL 2.5 mg/dL (0.2-1.0); CALCIUM 9.6 mg/dL (8.5-10.1); CREATININE 1.1 mg/dL (0.7-1.3); EST CRCL DRUG DOSING (CG) 101.73 mL/min; POTASSIUM,K 3.5 mEq/L (3.5-5.1); PROTEIN TOTAL,TP 7.8 g/dl (6.4-8.2)
[2024-06-15] MEDS: Ketorolac 60 MG/2 ML SDV IM ONE (22:26)
== END 2024-06-15 22:26 | disposition home or self-care (01) ==
LOC: JD.ED 20:09
DX: T59.811A Toxic effect of smoke, accidental (unintentional), initial encounter (principal); R51.9 Headache, unspecified; R07.89 Other chest pain; Z86.16 Personal history of COVID-19
CPT/HCPCS: 36415; 71045; 80053; 82375; 84484; 85025; 93005; 99284; A9270

== ENCOUNTER 2024-07-12 16:48 | Emergency (ER) | payer BC ==
[2024-07-12] MEDS: Ibuprofen 800 MG Tab PO ONE (17:39)
[2024-07-12] MEDS: Cyclobenzaprine 10 MG Tab PO ONE (17:39)
== END 2024-07-12 19:36 | disposition home or self-care (01) ==
LOC: JD.ED 16:48
DX: M54.50 Low back pain, unspecified (principal); Z86.73 Personal history of transient ischemic attack (TIA), and cerebral infarction without residual deficits; Z86.16 Personal history of COVID-19; Z87.891 Personal history of nicotine dependence; Z79.899 Other long term (current) drug therapy; Z88.6 Allergy status to analgesic agent; Z88.8 Allergy status to other drugs, medicaments and biological substances
CPT/HCPCS: 99283; A9270-GY

== ENCOUNTER 2024-10-18 16:29 | Emergency (ER) | payer BC | END 2024-10-18 18:20 | disposition home or self-care (01) | LOC: JD.ED 16:29 | DX: S06.0X0A Concussion without loss of consciousness, initial encounter (principal); K21.9 Gastro-esophageal reflux disease without esophagitis; Z87.891 Personal history of nicotine dependence; Z88.8 Allergy status to other drugs, medicaments and biological substances; Z79.899 Other long term (current) drug therapy; W00.0XXA Fall on same level due to ice and snow, initial encounter | CPT/HCPCS: 70450; 70450-26; 72125; 72125-26; 99283; 99284 ==

== ENCOUNTER 2024-12-12 06:47 | Emergency (ER) | payer BC ==
[2024-12-12] MEDS: LORazepam 1 MG Tab PO ONE (07:39)
== END 2024-12-12 11:00 | disposition home or self-care (01) ==
LOC: JD.ED 06:47
DX: F32.A Depression, unspecified (principal); Z88.8 Allergy status to other drugs, medicaments and biological substances; Z79.899 Other long term (current) drug therapy; Z87.891 Personal history of nicotine dependence
CPT/HCPCS: 99283; A9270

== ENCOUNTER 2025-04-17 12:04 | Emergency (ER) | payer BC ==
[2025-04-17] MEDS: cefTRIAXone 1 GM, Lidocaine 1% 2.1 ML IM ONE (12:48)
[2025-04-17] MEDS: LORazepam 2 MG/ML SDV IM ONE (12:49)
[2025-04-17] MEDS: Acetaminophen/HYDROcodone 325-5 MG Tab PO ONE (14:07)
== END 2025-04-17 13:30 | disposition home or self-care (01) ==
LOC: JD.ED 12:04
DX: L03.314 Cellulitis of groin (principal); K21.9 Gastro-esophageal reflux disease without esophagitis; Z88.8 Allergy status to other drugs, medicaments and biological substances; Z79.899 Other long term (current) drug therapy
CPT/HCPCS: 96372; 99283; A9270; J0696; J1171; J2003; J2060; 99284

== ENCOUNTER 2025-07-20 15:15 | Emergency (ER) | payer BC | END 2025-07-20 19:09 | disposition home or self-care (01) | LOC: JD.ED 15:15 | DX: F41.0 Panic disorder [episodic paroxysmal anxiety] (principal); K21.9 Gastro-esophageal reflux disease without esophagitis; Z79.899 Other long term (current) drug therapy | CPT/HCPCS: 99283; A9270 ==